=== PATIENT | female | born 1970 ===

== ENCOUNTER 2017-04-13 19:35 | Emergency (ER) | payer SELFPAY ==
[2017-04-13 22:39] LABS: HCG,QUALITATIVE URINE NEGATIVE (NEGATIVE)
[2017-04-13 22:46] LABS: SQUAMOUS EPITHIAL 1 /hpf (0-5); URINE BACTERIA OCC (<OCC)
[2017-04-13] MEDS ORDERED: Iohexol 240 (50 ml) PO STA (23:07)
[2017-04-13] MEDS ORDERED: Sodium Chloride 0.9% 1,000 ML IV STA (23:07)
[2017-04-13 23:19] LABS: URINE BILIRUBIN NEGATIVE (NEGATIVE); URINE BLOOD NEGATIVE (NEGATIVE); URINE CLARITY Clear (Clear); URINE COLOR Straw (YELLOW); URINE GLUCOSE (UA) NORMAL (Normal); URINE LEUKOCYTE ESTERASE NEG Leu/uL (Negative); URINE NITRATE NEGATIVE (NEGATIVE); URINE PROTEIN NEGATIVE (NEGATIVE); URINE UROBILINOGEN NORMAL mg/dL (0.2-1.0)
[2017-04-13] MEDS ORDERED: Iohexol 240 (50 ml) ONE (23:28)
[2017-04-13] MEDS ORDERED: Sodium Chloride 0.9% 1,000 ML ONE (23:28)
[2017-04-13 23:41] LABS: ALB/GLOB RATIO 1.4 (1.0-2.1); ALBUMIN 3.9 g/dL (3.5-5.0); ALT/SGPT 23 U/L (9-52); AST/SGOT 16 U/L (14-36); BLOOD UREA NITROGEN 13 mg/dL (7-17); CALCIUM 8.1 mg/dl (8.6-10.4); GFR AFRICAN-AMERICAN > 60; GFR NON-AFRICAN AMERICAN > 60; LIPASE 200 U/L (23-300)
[2017-04-13 23:50] LABS: BASO # 0.2 K/uL (0.0-0.2); BASO % 1.9 % (0.0-2.0); EOS # 0.2 K/uL (0.0-0.7); EOS % 2.4 % (0.0-4.0); HEMOGLOBIN 8.4 g/dL (11.0-16.0); LYMPH # 2.2 K/uL (1.0-4.3); LYMPH % 21.8 % (20.0-40.0); MEAN CELL VOLUME 68.3 fL (81.0-99.0); MEAN CORPUSCULAR HEMOGLOBIN 22.4 pg (27.0-31.0); MEAN CORPUSCULAR HGB CONC 32.8 g/dL (33.0-37.0); MEAN PLATELET VOLUME 7.6 fL (7.2-11.7); MONO # 0.6 K/uL (0.0-0.8); MONO % 5.9 % (0.0-10.0); NEUT # 6.8 K/uL (1.8-7.0); RBC 3.75 Mil/uL (3.80-5.20); RED CELL DISTRIBUTION WIDTH 18.2 % (11.5-14.5)
[2017-04-14] MEDS ORDERED: Iodixanol 320 MG/ML 100 ML BOTTLE IV ONE (01:15)
--- NOTE | 2017-04-14 02:15 | CT ---
EXAM: CT Abdomen and Pelvis With Intravenous Contrast CLINICAL HISTORY: 46 years old, female; Pain; Abdominal pain; Periumbilical; Additional info: Lower abd pain, nausea TECHNIQUE: Axial computed tomography images of the abdomen and pelvis with intravenous contrast. All CT scans at this facility use one or more dose reduction techniques, viz.: automated exposure control; ma/kV adjustment per patient size (including targeted exams where dose is matched to indication; i.e. head); or iterative reconstruction technique. Oral contrast was administered. 572 images are submitted. Coronal and sagittal reformatted images were created and reviewed. CONTRAST: 100 mL of [id number] administered intravenously. COMPARISON: No relevant prior studies available. FINDINGS: Lower thorax: Small hiatal hernia. ABDOMEN: Liver: There are 2 hepatic hypodensities that are not characterized on this examination but again statistically represent hepatic cysts. Gallbladder and bile ducts: Unremarkable. No ductal dilation. Pancreas: Unremarkable. No mass. No ductal dilation. Spleen: Unremarkable. No splenomegaly. Adrenals: Unremarkable. No mass. Kidneys and ureters: Unremarkable. No solid mass. No hydronephrosis. Stomach and bowel: There is stool like appearance to the distal small bowel. This may represent slow transit. Large amount of stool in the colon. Correlation with patient's clinical history of constipation is recommended. Diverticulosis. No mucosal thickening. Appendix: The appendix is not seen. PELVIS: Bladder: Partially distended bladder with bladder wall thickening. Correlation with urinalysis is recommended only if clinical cystitis is suspected. Reproductive: High riding left ovary without cystic septated hypodense mass measuring 5.0 x 4.1 cm representing complex functional ovarian cyst. Right ovarian dominant follicle measuring 2.1 cm. Prominent lower uterine segment. Correlation with patient's clinical pelvic exam and/or Pap smear may be helpful. ABDOMEN and PELVIS: Intraperitoneal space: Unremarkable. No free air. No significant fluid collection. Bones/joints: No acute fracture. No dislocation. Soft tissues: There is a fat-containing umbilical hernia. Left inguinal herniation of fat. Left perianal subcutaneous fat nodular densities seen on image image 165 and 155 series 3 of unclear clinical significance. Vasculature: Unremarkable. No abdominal aortic aneurysm. Lymph nodes: Unremarkable. No enlarged lymph nodes. IMPRESSION: 1. High riding left ovary without cystic septated hypodense mass measuring 5.0 x 4.1 cm representing complex functional ovarian cyst. Right ovarian dominant follicle measuring 2.1 cm. 2. Prominent lower uterine segment. Correlation with patient's clinical pelvic exam and/or Pap smear may be helpful. Correlation with gynecology history clinical evaluation and further workup or followup as recommended by patient's clinical data.
--- NOTE | 2017-04-14 03:30 | C.PDOC ---
History Of Present Illness 46 years old female presents to ED with complaints of left sided pelvic pain which radiates to the back that began 4 days ago. Associated symptoms are frequent urination and dysuria. Denies fever, nausea, vomiting, vaginal bleeding or discharge. Time Seen by Provider: 04/13/17 20:17 Chief Complaint (Nursing): Female Genitourinary History Per: Patient History/Exam Limitations: no limitations Onset/Duration Of Symptoms: Days (4) Current Symptoms Are (Timing): Still Present Quality Of Discomfort: "Pain" Associated Symptoms: Urinary Symptoms. denies: Fever, Nausea, Vomiting Exacerbating Factors: None Alleviating Factors: None Recent travel outside of the [place]: No Abnormal Vaginal Bleeding: No Past Medical History Reviewed: Historical Data, Nursing Documentation, Vital Signs Vital Signs: Last Vital Signs Temp 97.8 F 04/14/17 03:46 Pulse 70 04/14/17 03:46 Resp 14 04/14/17 03:46 BP 110/70 04/14/17 03:46 Pulse Ox 100 04/14/17 04:29 - Medical History PMH: Anemia, Diverticulitis, Hyperthyroidism Surgical History: No Surg Hx Family History: States: Unknown Family Hx - Social History Hx Alcohol Use: No Hx Substance Use: No Review Of Systems Constitutional: Negative for: Fever Gastrointestinal: Negative for: Nausea, Vomiting Genitourinary: Positive for: Dysuria, Frequency, Pelvic Pain (Left sided; radiates to the back ). Negative for: Vaginal Discharge, Vaginal Bleeding Neurological: Negative for: Weakness, Numbness Physical Exam - Physical Exam Appears: Well, Non-toxic, Other (Awake and alert) Skin: Normal Color, Warm, Dry Head: Atraumatic, Normacephalic Eye(s): bilateral: Normal Inspection Oral Mucosa: Moist Chest: Symmetrical, No Tenderness Cardiovascular: Rhythm Regular Gastrointestinal/Abdominal: Soft, Tenderness (left suprapubic area) Pelvic: No Vaginal Bleeding, No Vaginal Discharge Neurological/Psych: Oriented x3, Normal Speech, Normal Cognition ED Course And Treatment - Laboratory Results Result Diagrams: 04/13/17 23:26 04/13/17 23:26 O2 Sat by Pulse Oximetry: 100 (RA) Pulse Ox Interpretation: Normal - CT Scan/US CT Abdomen and Pelvis Other Rad Studies (CT/US): Read By Radiologist, Radiology Report Reviewed CT/US Interpretation: EXAM: CT Abdomen and Pelvis With Intravenous Contrast. CLINICAL HISTORY: 46 years old, female; Pain; Abdominal pain; Periumbilical; Additional info: Lower abd pain, nausea. TECHNIQUE: Axial computed tomography images of the abdomen and pelvis with intravenous contrast. All CT. scans at this facility use one or more dose reduction techniques, viz.: automated exposure control;. ma/kV adjustment per patient size (including targeted exams where dose is matched to indication; i.e. head); or iterative reconstruction technique. Oral contrast was administered. 572 images are. submitted. Coronal and sagittal reformatted images were created and reviewed. CONTRAST: 100 mL of [id number] administered intravenously. COMPARISON: No relevant prior studies available. FINDINGS: Lower thorax: Small hiatal hernia. ABDOMEN: Liver: There are 2 hepatic hypodensities that are not characterized on this examination but again. statistically represent hepatic cysts. Gallbladder and bile ducts: Unremarkable. No ductal dilation. Pancreas: Unremarkable. No mass. No ductal dilation. [facility]. Final Radiology Report [id number]. Name: ANDREIA STALEY Age: 46Years F Date: 04/13/2017. SSN: [id number] : 1970. Study: CT ABDOMEN/PELVIS W Requesting Physician: Sharyn Pierson PA-C. Images: 572. Addl Studies: Provided Clinical History: lower abd pain, nausea. CONFIDENTIALITY STATEMENT. This transmission is confidential and is intended to be a privileged communication. It is intended only for the use of the addressee. Access to this. message by anyone else is unauthorized. If you are not the intended recipient, any disclosure, copying, distribution or any action taken, or omitted to. be taken in reliance on it is prohibited and may be unlawful. If you received this communication in error, please notify us by telephone, so that return. of this document to us can be arranged. Page 2 of 3. Spleen: Unremarkable. No splenomegaly. Adrenals: Unremarkable. No mass. Kidneys and ureters: Unremarkable. No solid mass. No hydronephrosis. Stomach and bowel: There is stool like appearance to the distal small bowel. This may represent. slow transit. Large amount of stool in the colon. Correlation with patient's clinical history of. constipation is recommended. Diverticulosis. No mucosal thickening. Appendix: The appendix is not seen. PELVIS: Bladder: Partially distended bladder with bladder wall thickening. Correlation with urinalysis is. recommended only if clinical cystitis is suspected. Reproductive: High riding left ovary without cystic septated hypodense mass measuring 5.0 x 4.1 cm. representing complex functional ovarian cyst. Right ovarian dominant follicle measuring 2.1 cm. Prominent lower uterine segment. Correlation with patient's clinical pelvic exam and/or Pap smear. may be helpful. ABDOMEN and PELVIS: Intraperitoneal space: Unremarkable. No free air. No significant fluid collection. Bones/joints: No acute fracture. No dislocation. Soft tissues: There is a fat-containing umbilical hernia. Left inguinal herniation of fat. Left perianal. subcutaneous fat nodular densities seen on image image 165 and 155 series 3 of unclear clinical. significance. Vasculature: Unremarkable. No abdominal aortic aneurysm. Lymph nodes: Unremarkable. No enlarged lymph nodes. IMPRESSION: 1. High riding left ovary without cystic septated hypodense mass measuring 5.0 x 4.1 cm. representing complex functional ovarian cyst. Right ovarian dominant follicle measuring 2.1 cm. [facility]. Final Radiology Report . Name: ANDREIA STALEY Age: 46Years F Date: 04/13/2017. SSN: [id number] : 1970. Study: CT ABDOMEN/PELVIS W Requesting Physician : Sharyn Pierson PA-C. Images: 572. Addl Studies: Provided Clinical History: lower abd pain, nausea. CONFIDENTIALITY STATEMENT. This transmission is confidential and is intended to be a privileged communication. It is intended only for the use of the addressee. Access to this. message by anyone else is unauthorized. If you are not the intended recipient, any disclosure, copying, distribution or any action taken, or omitted to. be taken in reliance on it is prohibited and may be unlawful. If you received this communication in error, please notify us by telephone, so that return. of this document to us can be arranged. Page 3 of 3. 2. Prominent lower uterine segment. Correlation with patient's clinical pelvic exam and/or Pap smear. may be helpful. Correlation with gynecology history clinical evaluation and further workup or followup as. recommended by patient' s clinical data. Thank you for allowing us to participate in the care of your patient. Dictated and Authenticated by: Niya Sanon MD. 04/14/2017 2:15 AM Eastern Time ([place] & [place]) Progress Note: Ordered CT abdomen and pelvis, bloodwork and urinalysis. Administered IV fluids, Zofran and Omnipaque. Urine is clean. CT shows cyst in left ovaries. Advised to follow up with [employer]. Disposition - Disposition Referrals: [facility] [Outside] [facility] [Outside] Disposition: HOME/ ROUTINE Disposition Time: 03:27 Condition: STABLE Additional Instructions: Follow up with PMD/ OBGYN/Clinic within 1-2 days. Return to ED if feel worse. Prescriptions: Nitrofurantoin Macrocrystals [Macrobid] 1 cap PO BID #14 cap Naproxen [Naprosyn] 1 tab PO BID PRN #25 tab PRN Reason: Pain traMADol [Ultram] 50 mg PO Q6 #20 tab Instructions: Ovarian Cyst (ED), Urinary Tract Infection in Women (ED) Forms: NPS (Jamaican) Print Language: TAJIK - Clinical Impression Clinical Impression: Ovarian cyst, UTI (urinary tract infection) - PA / [employer] / Resident Statement MD/DO has reviewed & agrees with the documentation as recorded. - Scribe Statement The provider has reviewed the documentation as recorded by the Doreen Naylor All medical record entries made by the Kristenibjennifer were at my direction and personally dictated by me. I have reviewed the chart and agree that the record accurately reflects my personal performance of the history, physical exam, medical decision making, and the department course for this patient. I have also personally directed, reviewed, and agree with the discharge instructions and disposition.
[2017-04-14 03:46] VITALS: BP 110/70; PULSE 70; RESP 14; TEMP 97.8
[2017-04-14 04:19] VITALS: O2SAT 100
== END 2017-04-14 03:45 | disposition home or self-care (01) ==
LOC: C.ER 19:35
DX: N83.209 Unspecified ovarian cyst, unspecified side (principal); N39.0 Urinary tract infection, site not specified
CPT/HCPCS: 74177; 80053; 81001; 83690; 84703; 85025; 96361; 96374; 99283; J2405; J7040; Q9966; Q9967